=== PATIENT | female | born 1960 | race Caucasian/White ===

== ENCOUNTER 2018-10-17 06:08 | Inpatient (IN) | payer OTHER ==
[2018-09-30 13:30] VITALS: BMI 25.7
[2018-10-17] MEDS ORDERED: CEFAZOLIN 2 GM in DEXTROSE 5%-WATER - 50 ML IVPB ONE (06:22)
[2018-10-17] MEDS ORDERED: oxyCODONE HCL 10 MG SUSTAINED ACTING TABLET PO ONE (06:22)
[2018-10-17] MEDS ORDERED: GABAPENTIN 300 MG CAPSULE (FP) PO ONE (06:22)
[2018-10-17] MEDS ORDERED: ROPIVICAINE 0.2%/MORPH PF/KETOROLAC - 51ML DISP.SYRINGE IA ONE (06:22)
[2018-10-17] MEDS ORDERED: TRANEXAMIC ACID 1000 MG/10 ML VIAL IVPUSH ONE (06:22)
[2018-10-17] MEDS ORDERED: CELECOXIB 200 MG CAPSULE PO ONE (06:22)
[2018-10-17] MEDS ORDERED: PANTOPRAZOLE 40 MG TABLET (FP) PO ONE (06:23)
[2018-10-17] MEDS ORDERED: SODIUM CHLORIDE 0.9% P/F 10 ML VIAL IJ ONE (07:00)
[2018-10-17] MEDS ORDERED: MIDAZOLAM HCL 2 MG/2 ML SINGLE DOSE VIAL ONE ×2 (07:00→08:49)
[2018-10-17] MEDS ORDERED: BUPIVACAINE LIPOSOME/PF (EXPAREL) 266 MG/20 ML VIAL ONE (07:00)
[2018-10-17] MEDS ORDERED: SUCCINYLCHOLINE CHLORIDE 200 MG/10 ML VIAL ONE (07:07)
[2018-10-17] MEDS ORDERED: PROPOFOL 20 ML ONE (07:07)
[2018-10-17] MEDS ORDERED: ONDANSETRON 4 MG/2 ML VIAL ONE (07:11)
[2018-10-17] MEDS ORDERED: DEXAMETHASONE SOD PHOSPHATE 4 MG/1 ML VIAL ONE (07:11)
[2018-10-17] MEDS ORDERED: ceFAZolin SODIUM 1 GM VIAL ONE ×2 (07:11→08:01)
[2018-10-17] MEDS ORDERED: LIDOCAINE HCL/PF 2% SDV 5ML VIAL ONE (07:25)
--- NOTE | 2018-10-17 07:36 | HP ---
Admitting History and Physical - Admission Chief Complaint: left knee osteoarthritis x years History of Present Illness: 58 year old female presents in regard to her left knee. Longstanding history of left knee osteoarthritis. Patient complains of pain, limited ROM, difficulty ambulating and difficulty completing ADLs. Patient has failed conservative treatment measures including PO medication, activity modifications, injections and exercise programs. At this point, patient would like to proceed with surgical intervention - left total knee arthroplasty, MAKOplasty. History Source: Patient - Past Medical History Pulmonary: Yes: Asthma Gastrointestinal: Yes: GERD Heme/Onc: Yes: Cancer (h/o Breast CA) Musculoskeletal: Yes: Osteoarthritis ENT: Yes: Other (Hay fever) Endocrine: Yes: Hypothyroidism - Past Surgical History Additional Past Surgical History: See written history and physical. - Advance Directives Advance Directives: Yes: Living Will, Health Care Proxy - Smoking History Smoking history: Former smoker Have you smoked in the past 12 months: No If you are a former smoker, when did you quit?: - Alcohol/Substance Use Hx Alcohol Use: Yes (WINE SOCIALLY) Home Medications - Allergies Allergies/Adverse Reactions: Allergies Allergy/AdvReac Type Severity Reaction Status Date / Time bee venom protein (honey bee) Allergy Severe Difficulty Verified 09/30/18 13:14 Breathing No Known Drug Allergies Allergy Verified 09/30/18 13:14 - Home Medications Home Medications: Ambulatory Orders Albuterol Sulfate [Proair Hfa] 8.5 gm IH QID PRN MDD HASNT USED FOR YRS Anastrozole [Arimidex -] 1 mg PO DAILY 09/30/18 Ascorbic Acid [Vitamin C] 500 mg PO DAILY 09/30/18 Bupropion HCl [Wellbutrin Xl] 300 mg PO DAILY 09/30/18 Cetirizine HCl [Zyrtec -] 10 mg PO DAILY 09/30/18 Cholecalciferol (Vitamin D3) [Vitamin D] 2,000 unit PO DAILY 09/30/18 Levothyroxine [Synthroid -] 150 mcg PO DAILY 09/30/18 Montelukast Sodium [Singulair] 10 mg PO DAILY 09/30/18 Mv,Calcium,Min/Iron/Folic/Vitk [Essential Woman Tablet] 1 each PO DAILY Pantoprazole Sodium 40 mg PO DAILY 09/30/18 Review of Systems - Review of Systems Musculoskeletal: reports: Crepitus (left knee), Decreased ROM (left knee), Joint Pain (left knee), Joint Swelling (left knee) Physical Examination Vital Signs: Vital Signs Temperature 98.8 F 10/17/18 06:48 Pulse Rate 68 10/17/18 06:48 Respiratory Rate 18 10/17/18 06:48 Blood Pressure 122/80 10/17/18 06:48 O2 Sat by Pulse Oximetry (%) Constitutional: Yes: Well Nourished, No Distress Eyes: Yes: Conjunctiva Clear HENT: Yes: Atraumatic, Normocephalic Neck: Yes: Supple Cardiovascular: Yes: Regular Rate and Rhythm Respiratory: Yes: Regular Gastrointestinal: Yes: Soft ...Rectal Exam: Yes: Deferred Musculoskeletal: Yes: Joint Stiffness (left knee), Joint Swelling (left knee) Assessment/Plan 58 year old female presents in regard to her left knee. Longstanding history of left knee osteoarthritis. Patient complains of pain, limited ROM, difficulty ambulating and difficulty completing ADLs. Patient has failed conservative treatment measures including PO medication, activity modifications, injections and exercise programs. At this point, patient would like to proceed with surgical intervention - left total knee arthroplasty, MAKOplasty. Pros, cons, risks, benefits and alternatives of a left total knee arthroplasty, MAKOplasty were discussed with the patient at length. Patient confirms her understanding and consents to proceed with a left total knee arthoplasty, MAKOplasty.
[2018-10-17] MEDS ORDERED: VANCOMYCIN 1,000 MG VIAL (RESTRICTED TO ID ONLY) ONE (08:01)
[2018-10-17] MEDS ORDERED: ONDANSETRON 4 MG/2 ML VIAL IVPUSH PRN ×2 (09:44→11:21)
[2018-10-17] MEDS ORDERED: oxyCODONE HCL 5 MG TABLET PO PRN ×2 (09:45)
[2018-10-17] MEDS ORDERED: oxyCODONE HCL 10 MG SUSTAINED ACTING TABLET PO SCH (10:00)
--- NOTE | 2018-10-17 11:20 | OP ---
Operative Note - Note: Operative Date: 10/17/18 Pre-Operative Diagnosis: Left knee osteoarthritis Operation: left MACIEJ TKA Post-Operative Diagnosis: Same as Pre-op Surgeon: Jessú Winter Casket Assembler Metal: Lexi Holden Anesthesia: Spinal Estimated Blood Loss (mls): 150
[2018-10-17] MEDS ORDERED: MAGNESIUM HYDROX 2400MG/30ML ORAL SUSPENSION 30 ML CUP PO PRN (11:21)
[2018-10-17] MEDS ORDERED: MAG HYDROX/AL HYDROX/SIMETH 30 ML UNIT-DOSE CUP PO PRN (11:21)
[2018-10-17] MEDS ORDERED: ALBUTEROL SO4 8 GM HFA INHALER IH PRN (11:21)
[2018-10-17] MEDS ORDERED: ACETAMINOPHEN 1000 MG/100 ML VIAL (NON FORMULARY) IVPB ONE ×2 (11:23→12:05)
[2018-10-17] MEDS ORDERED: LACTATED RINGERS SOLUTION 1,000 ML IV SCH (11:30)
[2018-10-17] MEDS ORDERED: KETOROLAC TROMETHAMINE 30 MG/1 ML VIAL IVPUSH ONE (12:22)
[2018-10-17] MEDS ORDERED: traMADol HCL 50 MG TABLET PO ONE (12:30)
--- NOTE | 2018-10-17 16:36 | SPEC ---
DATE OF OPERATION: 10/17/2018 PREOPERATIVE DIAGNOSIS: Left knee osteoarthritis. POSTOPERATIVE DIAGNOSIS: Left knee osteoarthritis. PROCEDURE: Left total knee replacement with Makoplasty robotic navigation. ATTENDING: Sulma Meraz M.D. FIELD SERVICE ANALYST: Yessica Gruber ANESTHESIA: Spinal plus sedation. ESTIMATED BLOOD LOSS: 150 mL. COMPLICATIONS: None. DISPOSITION: The patient was transferred to the PACU in stable condition. IMPLANTS USED: Wesley Triathlon size 6 femoral component, size 5 tibial component, 13-mm total stabilized polyethylene component, 32-mm patellar component. INDICATION: This is a 58-year-old female who presents to the office complaining of severe left knee pain. She was seen and examined by Dr. Meraz and diagnosed with severe left knee osteoarthritis. The patient was initially treated nonoperatively with injections, medications, and physical therapy but continued to have severe pain and ambulatory dysfunction. She was therefore indicated for a left total knee replacement. The risks, benefits, and alternatives to the surgery were explained to the patient in great detail, and she elected to proceed with the procedure. DESCRIPTION OF PROCEDURE: On the day of surgery, the patient was taken to the operating room and placed on the OR table. Spinal anesthesia was administered by the anesthesiologist. The patient was then positioned supine on the table and all bony prominences were padded. The knee was then prepped and draped in the usual sterile fashion and intravenous antibiotics were given for infection prophylaxis. A surgical time-out was then performed with the team, and the patients identity, procedure, side, availability of implants, and the administration of antibiotics was confirmed. With the knee flexed, a midline incision was made and carried down through the subcutaneous fat to the underlying retinaculum. A medial parapatellar arthrotomy was performed. This was followed by a subperiosteal dissection of the tissue off the proximal, medial tibia. A portion of fat pad was removed from under the patellar tendon, and a small portion of fat was excised off the distal supracondylar femur. Electrocautery and an Aquamantys bipolar sealing device were used to achieve hemostasis. The knee was then flexed further and the anterior horn of the lateral meniscus was released from the midline. Next, the anterior and posterior cruciate ligaments were transected. Grade 4 changes were noted diffusely throughout the knee. Femoral and tibial checkpoints were then placed in the appropriate location using a mallet. Two parallel bicortical self-drilling pins were placed in the tibial diaphysis after making stab incisions and bluntly dissecting down to bone. Two pins were then placed in the distal supracondylar femur. The Gem navigation arrays were then attached to both the femoral and tibial pins and the lower extremity was then registered to the robotic navigation device using various joint movements, as well as inputting several dozen reference points. The knee was then taken through a full range of motion with a corrective force applied. Alignment in varus/valgus as well as flexion/extension and soft tissue balance was measured in various positions. The navigation device showed a numerical and graphic representation of the soft tissue balance. The components were repositioned virtually using the software until optimal soft tissue balance was achieved on screen. Once this was accomplished, the final plan was saved and sent to the robot. Self-retaining retractors were then placed at the joint line for exposure and protection of the collateral ligaments. The robot was brought into the sterile field and registered with the navigation device. The robotic arm with attached oscillating saw blade was then used to perform femoral and tibial bone cuts as per the saved software plan. The femoral box cut was made using the appropriately sized manual cutting guide. The knee was then irrigated. Trial components were placed and the knee was taken through a full range of motion to assess soft tissue balance and alignment. The range of motion was found to be excellent and the soft tissue balance was optimal and according to plan. The knee was then put into extension and the patella everted. The synovium around the patella was circumscribed with electrocautery. A caliper was used to measure the patellar thickness and a saw was then used to resect the patella at the chondro-osseous junction. The cut surface was then sized and drilled for the appropriate patellar button, with care taken to medialize it. A trial patella was then placed and the knee was again taken through a full range of motion. The knee was found to have both good balance and good patellar tracking. All of the components were removed except the tibial base plate. The appropriate instrumentation was used to drill and punch the proximal tibia for the keel of the final component. All bony surfaces were then cleaned with pulsatile lavage and dried. Bone cement was then prepared on the back table, and final components were cemented in place in the usual fashion. Extruded cement was removed. The polyethylene trial was placed, the knee was put into extension, and axial pressure was applied for compression while the cement hardened. The patellar button was similarly cemented into place. Once the cement had hardened, the knee was taken through a full range of motion to assess stability, balance, and patellar tracking. This was found to be optimal and the trial polyethylene was exchanged for the appropriately sized real implant. The wound was then thoroughly irrigated with normal saline. A 3-minute dilute Betadine lavage was performed. The knee was again irrigated using a pulsatile lavage device. A periarticular injection was used to locally infiltrate the capsular tissues surrounding the implant and prosthesis. Then No. 1 Polysorb and 0 VLoc 180 barbed sutures were used to close the arthrotomy. Then No. 1 Polysorb and 2-0 VLoc 90 sutures were used in the subcutaneous tissues. Then 4-0 undyed Vicryl and Dermabond skin adhesive was used to close the stab incisions made for the navigation pins. The skin was closed using both 3-0 VLoc 90 suture in a running subcuticular fashion and Dermabond skin adhesive. Once this was completed a sterile Aquacel dressing and compressive Davonte-wrap was applied. The patient was then awakened and taken to the PACU in stable condition. SULMA MERAZ M.D. ANA/[id number]
[2018-10-17] MEDS: KETOROLAC TROMETHAMINE 30 MG/1 ML VIAL IVPUSH SCH ×2 (17:33→17:37)
[2018-10-17] MEDS: traMADol HCL 50 MG TABLET PO SCH (17:34)
[2018-10-17] MEDS: CEFAZOLIN 2 GM/D5W 2 GM/50 ML ML IVPB SCH (17:35)
[2018-10-17] MEDS: ACETAMINOPHEN 325 MG TABLET (FP) PO SCH (17:36)
[2018-10-17] MEDS ORDERED: DEXAMETHASONE SOD PHOSPHATE 10 MG/1 ML VIAL IVPB ONE (20:00)
[2018-10-17] MEDS: CELECOXIB 200 MG CAPSULE PO SCH (21:33)
[2018-10-17] MEDS: GABAPENTIN 300 MG CAPSULE (FP) PO SCH (21:33)
[2018-10-17] MEDS: SENNOSIDES/DOCUSATE COMBO (SENNA PLUS) TABLET (UD) PO SCH (21:34)
[2018-10-17] MEDS: oxyCODONE HCL 10 MG SUSTAINED ACTING TABLET PO SCH (21:34)
[2018-10-17] MEDS: ASCORBIC ACID 500 MG TABLET (FP) PO SCH (21:34)
[2018-10-18] MEDS: KETOROLAC TROMETHAMINE 30 MG/1 ML VIAL IVPUSH SCH ×2 (00:08→06:50)
[2018-10-18] MEDS: ACETAMINOPHEN 325 MG TABLET (FP) PO SCH ×5 (00:08→23:53)
[2018-10-18] MEDS: traMADol HCL 50 MG TABLET PO SCH ×6 (00:09→23:53)
[2018-10-18] MEDS: CEFAZOLIN 2 GM/D5W 2 GM/50 ML ML IVPB SCH (01:17)
[2018-10-18] MEDS: LACTATED RINGERS SOLUTION 1,000 ML IV SCH ×2 (08:11→14:04)
[2018-10-18 08:17] LABS: HEMATOCRIT 40.3 % (32.4-45.2); HEMOGLOBIN 13.5 GM/dl (10.7-15.3); MCH 31.9 pg (25.7-33.7); MCHC 33.5 g/dl (32.0-36.0); MEAN CELL VOLUME 95.3 fl (80-96); MEAN PLT VOLUME 8.1 fl (7.5-11.1); PLATELET COUNT 325 K/MM3 (134-434); RBC 4.23 M/mm3 (3.60-5.2); RDW 11.6 % (11.6-15.6); WHITE BLOOD COUNT 10.2 K/mm3 (4.0-10.8)
[2018-10-18] MEDS: ASPIRIN 325 MG TABLET PO SCH (09:00)
[2018-10-18 09:09] LABS: ANION GAP 7 MMOL/L (8-16); BLOOD UREA NITROGEN 17 mg/dl (7-18); CALCIUM 9.1 mg/dl (8.4-10.2); CHLORIDE 100 mmol/L (98-107); CO2 30 mmol/L (22-28); CREATININE 0.8 mg/dl (0.6-1.3); GLUCOSE,RANDOM 149 mg/dl (74-106); SODIUM 137 mmol/L (136-145)
[2018-10-18 09:59] LABS: POTASSIUM 4.6 mmol/L (3.5-5.1)
[2018-10-18] MEDS ORDERED: PATIENT'S OWN MEDICATION (NON-FORMULARY) (Cetirizine Hcl 10 MG) PO SCH (10:00)
[2018-10-18] MEDS ORDERED: PATIENT'S OWN MEDICATION (NON-FORMULARY) (Bupropion Hcl [Wellbutrin Xl] 300 MG) PO SCH (10:00)
[2018-10-18] MEDS: GABAPENTIN 300 MG CAPSULE (FP) PO SCH ×2 (10:17→21:37)
[2018-10-18] MEDS: LORATADINE 10 MG TABLET PO SCH (10:17)
[2018-10-18] MEDS: MULTIVITAMINS (DAILY MVI) TABLET (FP) PO SCH (10:17)
[2018-10-18] MEDS: SENNOSIDES/DOCUSATE COMBO (SENNA PLUS) TABLET (UD) PO SCH ×2 (10:18→21:37)
[2018-10-18] MEDS: ASCORBIC ACID 500 MG TABLET (FP) PO SCH ×2 (10:18→21:38)
[2018-10-18] MEDS: PANTOPRAZOLE 40 MG TABLET (FP) PO SCH (10:18)
[2018-10-18] MEDS: MONTELUKAST NA 10 MG TABLET PO SCH (10:19)
[2018-10-18] MEDS: oxyCODONE HCL 10 MG SUSTAINED ACTING TABLET PO SCH ×2 (10:19→21:37)
[2018-10-18] MEDS: ANASTROZOLE 1 MG TABLET PO SCH (10:19)
[2018-10-18] MEDS: CELECOXIB 200 MG CAPSULE PO SCH ×2 (10:19→21:37)
--- NOTE | 2018-10-18 14:21 | PN ---
Progress Note (short form) - Note Progress Note: 58F POD1 s/p L TKR under spinal anesthetic with peripheral nerve blocks for post operative pain relief. Pt states that pain is well controlled and reports no anesthetic complications. AVSS. Motor and sensory exam intact in bilateral lower extremities. Continue current regimen.
[2018-10-19] MEDS: ACETAMINOPHEN 325 MG TABLET (FP) PO SCH ×2 (06:51→11:47)
[2018-10-19] MEDS: traMADol HCL 50 MG TABLET PO SCH ×2 (06:52→11:47)
[2018-10-19 07:10] VITALS: BP 114/70; PULSE 68; TEMP 97.7
[2018-10-19] MEDS: ASPIRIN 325 MG TABLET PO SCH (08:07)
[2018-10-19 08:18] LABS: HEMATOCRIT 35.9 % (32.4-45.2); HEMOGLOBIN 12.1 GM/dl (10.7-15.3); MCH 32.2 pg (25.7-33.7); MCHC 33.8 g/dl (32.0-36.0); MEAN CELL VOLUME 95.2 fl (80-96); MEAN PLT VOLUME 8.5 fl (7.5-11.1); PLATELET COUNT 295 K/MM3 (134-434); RBC 3.77 M/mm3 (3.60-5.2); RDW 11.4 % (11.6-15.6); WHITE BLOOD COUNT 8.6 K/mm3 (4.0-10.8)
[2018-10-19] MEDS ORDERED: PT OWN MED DRAWER 7, Y5N ONE (09:08)
[2018-10-19] MEDS: MULTIVITAMINS (DAILY MVI) TABLET (FP) PO SCH (09:13)
[2018-10-19] MEDS: MONTELUKAST NA 10 MG TABLET PO SCH (09:13)
[2018-10-19] MEDS: PANTOPRAZOLE 40 MG TABLET (FP) PO SCH (09:13)
[2018-10-19] MEDS: CELECOXIB 200 MG CAPSULE PO SCH (09:13)
[2018-10-19] MEDS: ANASTROZOLE 1 MG TABLET PO SCH (09:13)
[2018-10-19] MEDS: GABAPENTIN 300 MG CAPSULE (FP) PO SCH (09:13)
[2018-10-19] MEDS: ASCORBIC ACID 500 MG TABLET (FP) PO SCH (09:13)
[2018-10-19] MEDS: oxyCODONE HCL 10 MG SUSTAINED ACTING TABLET PO SCH (09:14)
[2018-10-19] MEDS: SENNOSIDES/DOCUSATE COMBO (SENNA PLUS) TABLET (UD) PO SCH (09:14)
[2018-10-19] MEDS: LORATADINE 10 MG TABLET PO SCH (09:14)
[2018-10-19] MEDS: LACTATED RINGERS SOLUTION 1,000 ML IV SCH (09:15)
--- NOTE | 2018-10-19 12:23 | DS ---
Physical Examination Vital Signs: Vital Signs Temperature 97.7 F 10/19/18 07:08 Pulse Rate 68 10/19/18 07:08 Respiratory Rate 15 10/19/18 07:08 Blood Pressure 114/70 10/19/18 07:08 O2 Sat by Pulse Oximetry (%) 98 10/19/18 04:04 Labs: CBC, BMP 10/19/18 07:05 10/18/18 07:30 Discharge Summary Reason For Visit: LEFT KNEE OSTEOARTHRITIS Current Active Problems Osteoarthritis of left knee (Acute) Procedures: Principal: Left TKA Hospital Course: Admitted for elective surgery. Procedure performed without complications. Pt received postoperative antibiotic prophylaxis and DVT ppx. Ambulated with physical therapy. Stable for discharge home with outpatient followup. Condition: Stable - Instructions Diet, Activity, Other Instructions: Dr. Winter - Knee Replacement Instructions Keep the Aquacel dressing on until removed by Dr. Winter in 10-14 days - it is antibacterial and waterproof and you can shower with it on. Call the office for a follow-up appointment with Dr. Winter in 10-14 days. Take one Aspirin 325mg daily for 6 weeks to prevent blood clots in your legs. Take one Pantoprazole 40mg daily for 6 weeks to protect against heartburn and ulcers. Take Cephalexin (antibiotic) 3x/day for 10 days to help prevent skin infection. Take Celebrex 200mg twice daily for 30 days to reduce swelling and inflammation. Take a multivitamin, stool softener, and extra Vitamin C supplement daily. For pain: *Mild pain (1-3/10): Take 1 Tramadol tablet every 4 hours as needed. Moderate pain (4-6/10): Take 1 Tramadol tablet and 1 Percocet tablet every 4 hours as needed. Severe pain (7-10/10): Take 1 Tramadol tablet and 2 Percocet tablets every 4 hours as needed. Activity: You can put as much weight on the operative leg as you want. Right after you get home, there will be a physical therapist coming to your house to help you walk around and bend/straighten your knee. After your follow-up appointment, you will be sent for more intensive outpatient physical therapy which will include machines and equipment that the home therapist cannot bring to your house. Always use a walker or cane for balance and to prevent falls. Expect to see swelling/bruising from the operative site all the way down to your toes. Wear the compression stocking on the operative side during the day to minimize how much swelling there is in your foot/ankle. Don't wear the stocking at night. You don't have to wear a stocking on the other side. Disposition: VNS/HOME HEALTH CARE - Home Medications Comprehensive Discharge Medication List: Ambulatory Orders Albuterol Sulfate [Proair Hfa] 8.5 gm IH QID PRN MDD HASNT USED FOR YRS Anastrozole [Arimidex -] 1 mg PO DAILY 09/30/18 Bupropion HCl [Wellbutrin Xl] 300 mg PO DAILY 09/30/18 Cetirizine HCl [Zyrtec -] 10 mg PO DAILY 09/30/18 Cholecalciferol (Vitamin D3) [Vitamin D3] 2,000 unit PO DAILY 09/30/18 Levothyroxine [Synthroid -] 150 mcg PO DAILY 09/30/18 Montelukast Sodium [Singulair] 10 mg PO DAILY 09/30/18 Mv,Calcium,Min/Iron/Folic/Vitk [Multi For Her Tablet] 1 each PO DAILY 09/30/18 Pantoprazole Sodium 40 mg PO DAILY 09/30/18 Ascorbic Acid [Vitamin C -] 500 mg PO BID tablet 10/19/18 Aspirin [ASA -] 325 mg PO DAILY@0800 tablet 10/19/18 Celecoxib [CeleBREX -] 200 mg PO BID #60 capsule 10/19/18 Cephalexin Monohydrate [Keflex -] 500 mg PO TID #30 capsule 10/19/18 Multivitamins [Multivit ([facility] Formulary)] 1 tab PO DAILY tab 10/19/18 Oxycodone HCl/Acetaminophen [Percocet 5-325 mg Tablet] 1 - 2 tab PO Q4H PRN #60 tablet MDD 10 10/19/18 Pantoprazole Sodium [Protonix -] 40 mg PO DAILY #40 tablet.ec 10/19/18 Sennosides/Docusate Sodium [Pericolace -] 2 tablet PO BID tablet 10/19/18 traMADol HCL [Ultram -] 50 mg PO Q4H PRN #42 tablet MDD 6 10/19/18
--- NOTE | 2018-10-19 12:25 | PN ---
Progress Note (short form) - Note Progress Note: Pt seen and examined. Doing very well. AVSS Selected Entries 10/18/18 10/19/18 10/19/18 22:19 02:00 04:04 Temperature 97.9 F Pulse Rate 62 Respiratory 15 Rate Blood Pressure 116/68 O2 Sat by Pulse 100 98 Oximetry (%) Oxygen Delivery Room Air Room Air Method 10/19/18 07:08 Temperature 97.7 F Pulse Rate 68 Respiratory 15 Rate Blood Pressure 114/70 O2 Sat by Pulse Oximetry (%) Oxygen Delivery Method Laboratory Tests 10/18/18 10/18/18 10/19/18 07:30 07:30 07:05 WBC 10.2 8.6 Hgb 13.5 12.1 Hct 40.3 35.9 Plt Count 325 295 Sodium 137 Potassium 4.6 Chloride 100 Carbon Dioxide 30 H Anion Gap 7 L BUN 17 Creatinine 0.8 Creat Clearance w eGFR > 60 Random Glucose 149 H Calcium 9.1 Gen: NAD LLE: c/d/i, NVID A/P POD#2 s/p L TKA Doing very well. D/C home today.
--- NOTE | 2018-10-24 15:00 | PATH ---
Surgical Pathology Report Patient Name: SOO MENDEZ Med. Rec. #: [id number] /Age/Gender: 1960 (Age: 58) / F Account: [id number] Location: [facility] Taken: 10/17/2018 Received: 10/17/2018 Reported: 10/24/2018 Physicians: Jesús Winter M.D. Specimen(s) Received BONE LEFT KNEE Clinical History Osteoarthritis left knee Final Diagnosis BONE, LEFT KNEE, TOTAL KNEE REPLACEMENT: DEGENERATIVE JOINT DISEASE. Electronically Signed Natalia Atkinson M.D. Gross Description Received in formalin labeled "bone left knee," is a 12.5 x 10.0 x 1.4 cm aggregate of multiple portions of bone and soft tissue. The tibial plateau measures 8.0 x 6.2 x 1.8 cm. There are multiple areas of eburnation present, measuring up to 1.5 cm in greatest dimension. The remaining articular surfaces are grove-yellow and diffusely granular. The underlying trabecular bone is yellow and hard. Research Associate Professor sections are submitted in one cassette, following decalcification. 10/18/2018 [facility]10/18/2018
== END 2018-10-19 12:50 | disposition home health service (06) | DRG 302 ==
LOC: FM/S 06:08
PROVIDERS: ADMIT Student in an Organized Health Care Education/Training Program; ATTEND Student in an Organized Health Care Education/Training Program
PROC: 8E0Y0CZ Robotic Assisted Procedure of Lower Extremity, Open Approach (ICD-10-PCS; 2018-10-17)
PROC: 0SRD0J9 Replacement of Left Knee Joint with Synthetic Substitute, Cemented, Open Approach (ICD-10-PCS; principal; 2018-10-17 08:55)
DX: M17.12 Unilateral primary osteoarthritis, left knee (principal); J45.909 Unspecified asthma, uncomplicated; K21.9 Gastro-esophageal reflux disease without esophagitis; E03.9 Hypothyroidism, unspecified; Z85.3 Personal history of malignant neoplasm of breast
CPT/HCPCS: 36415; 73560-TC-LT-FY; 80048; 85027; 88304-TC; 88311-TC; 94760; 97116-GP; 97161-GP; J0131; J1100

== ENCOUNTER 2020-05-14 13:10 | Emergency (ER) | payer OTHER ==
[2020-05-14 13:33] VITALS: TEMP 98.2; BMI 26.9
[2020-05-14] MEDS ORDERED: SODIUM CHLORIDE 1,000 ML IV ONE (13:43)
--- NOTE | 2020-05-14 13:43 | PDOC ---
History of Present Illness - General Chief Complaint: Tremors Stated Complaint: TREMOR REACTION TO COLCHICINE Time Seen by Provider: 05/14/20 13:21 History Source: Patient Exam Limitations: No Limitations - History of Present Illness Initial Comments: 05/14/20 13:44 59y F h xof breast ca sp lumpectomy, hypothyroidism presenst with complaint of feeling jittery, weak, lightheaded after taking colchicine. Pt states she had several episodes of shooting R toe pain (3 episodes last night and this morning) lasting approx 20 minutes before resolving, so she notifed her PMD who referred her to urgent care. There she was dx with gout and started on indomethicin and colchicine. She took a dose of the indomethicin and 2 doses of the colchicine (2pills 1st does, 1 pill about 1 hr later). Abouit 20 min after the 2nd dose, she started feeling lightheaded, generally weak and shaky. She denies any associated pain including headache, neck pain, cp, sob, MEDRANO, n/v, palptations, abd pain, back pain, focal numbness/tingling/wekanss, vision changes, dysatrhria, fever/chills, cough, leg swelling, diarrhea, melena, bpr, dysuria. Pt has never felt like this before. Has never had a dx of gout in the past. she maxim any current foot pain. Past History - Medical History Allergies/Adverse Reactions: Allergies Allergy/AdvReac Type Severity Reaction Status Date / Time bee venom protein (honey bee) Allergy Severe Difficulty Verified 05/14/20 13:27 Breathing No Known Drug Allergies Allergy Verified 05/14/20 13:27 Home Medications: Ambulatory Orders Anastrozole [Arimidex -] 1 mg PO DAILY 09/30/18 Cetirizine HCl [Zyrtec -] 10 mg PO DAILY 09/30/18 Montelukast Sodium [Singulair] 10 mg PO DAILY 09/30/18 Pantoprazole Sodium 40 mg PO DAILY 09/30/18 Multivitamins [Multivit ([facility] Formulary)] 1 tab PO DAILY tab 10/19/18 Cholecalciferol (Vitamin D3) [Vitamin D3 -] 1,000 unit PO DAILY 05/14/20 Colchicine [Colcrys] 0.6 mg PO ONCE 05/14/20 Colchicine [Colcrys] 1.2 mg PO ONCE 05/14/20 Indomethacin [Indomethacin ER] 75 mg PO BID 05/14/20 Levothyroxine Sodium [Levoxyl] 175 mcg PO DAILY 05/14/20 Anemia: No Asthma: Yes (MILD/USES PROAIR RARELY) Cancer: Yes (ALMA BREAST CA DIAG 03/2018) Cardiac Disorders: No CVA: No COPD: No CHF: No Dementia: No Diabetes: No GI Disorders: Yes (GERD) Disorders: No HTN: No Hypercholesterolemia: No Liver Disease: No Seizures: No Thyroid Disease: Yes (hypo) - Surgical History Abdominal Surgery: Yes (GASTRIC SLEEVE 09/07/17) Appendectomy: Yes (YRS AGO) Cardiac Surgery: No Cholecystectomy: No Lung Surgery: No Neurologic Surgery: No Orthopedic Surgery: Yes (LEFT KNEE ARTHROSCOPIES X 4) - Psycho-Social/Smoking History Smoking History: Former smoker Have you smoked in the past 12 months: No If you are a former smoker, when did you quit?: 1989 Information on smoking cessation initiated: No - Substance Abuse Hx (Audit-C & DAST Scrn) How often the patient has a drink containing alcohol: 4 0r more times/wk Number of drinks the patient has on a typical day: 1 or 2 How often the patient has six or more drinks on one occasion: Never Score: In Men: 4 or > Positive; In Women: 3 or > Positive: 4 Screen Result (Pos requires Nsg. Audit-10AR): Positive In the last yr the pt used illegal drug/Rx for NonMed reason: No Score: Yes response is considered Positive: 0 Screen Result (Positive result requires Nsg. DAST-10): Negative Review of Systems - Review of Systems Able to Perform ROS?: Yes Comments:: 05/14/20 14:05 ROS Constitutional - +general weakness / shaky no reported Fever, Chills, HEENT: no reported vision changes, sore throat Respiratory: no reported cough, sob, hemoptysis Cardiac: +light headedness, dizzy no reported chest pain, palpitations, leg swelling Abd/GI: no reported abd pain, nausea, vomiting, blood per rectum, melena, diarrhea : no reported dysuria, frequency, discharge Musculskelatal - no reported back pain, joint swelling skin - no reported bruising, erythema, rash neurological: no reported headache, numbness, focal weakness, tingling, ataxia, hematologic: no reported easy bruising, easy bleeding Exam: GENERAL: The patient is awake, alert, and fully oriented, Nontoxic - in no acute distress. HEAD: Normocephalic, atraumatic. EYES: extraocular movements intact, sclera anicteric, conjunctiva clear. ENT: Normal voice, Moist mucous membranes. NECK: Normal range of motion, supple LUNGS: Breath sounds equal, clear to auscultation bilaterally. No wheezes, no rhonchi, no rales. HEART: Regular rate and rhythm, normal S1 and S2 without murmur, rub or gallop. ABDOMEN: Soft, nontender, No guarding, no rebound. No CVA tenderness EXTREMITIES: Normal range of motion, no edema. NEUROLOGICAL: No facial assymetry, Normal speech, normal finger to nose, normal rapid alternating movements, visual renteria intact to confrontation, unstable gait, neg romberg, strengh 5/5 and symmetric in upper/lower extremities PSYCH: anxious appearing SKIN: Warm, Dry, normal turgor, *Physical Exam - Vital Signs Last Vital Signs Temp Pulse Resp BP Pulse Ox 98.2 F 66 18 176/89 H 100 05/14/20 13:18 05/14/20 13:18 05/14/20 13:18 05/14/20 13:18 05/14/20 13:18 Heart Score/ECG Review - ECG Impressions Comment:: 05/14/20 14:07 Twelve-lead EKG was performed and reviewed by me. There is normal sinus rhythm with a normal rate. Rate of 65 The axis is normal. The intervals are normal. There is normal R wave progression There are no ST or T wave abnormalities. Impression: Normal twelve-lead EKG ED Treatment Course - LABORATORY CBC & Chemistry Diagram: 05/14/20 14:00 05/14/20 14:00 - RADIOLOGY Radiology Studies Ordered: Category Date Time Status HEAD CT WITHOUT CONTRAST [CT] Stat CT Scan 05/14/20 13:42 Ordered Medical Decision Making - Medical Decision Making 05/14/20 14:08 ddx for the pts sx includes possible medication side effect, anemia, metabolic derangement, dehydration, exam unremarakble beside some mild temor and a shaky gait, neuro intact will obtain blood work, cardiac enzymes, ekg, head ct will treat with fluids will reassess 05/14/20 15:30 pt feelnig improved complaining of mild headaceh no longer dizzy walking around with a normal gait labs reviewed ct head negative will dc with pmd fu and supportive care return precautiosn wre discussed Discharge - Discharge Information Problems reviewed: Yes Clinical Impression/Diagnosis: Medication side effect Condition: Improved Disposition: HOME - Admission No - Follow up/Referral Referrals: Suhail Mayfield [Primary Care Provider] - - Patient Discharge Instructions Patient Printed Discharge Instructions: DI for Muscle Weakness, DI for Dizziness-Nonvertigo Additional Instructions: Return to the emergency department immediately with ANY new, persistent or worsening symptoms Including any focal weakness, numbness, tingling, vision changes, changes in your speech, any pain or any other concerns. You MUST call and follow up with your doctor in 2-3 days for further evaluation of your symptoms. Results were discussed with you. Please make sure your doctor reviews the results of your emergency evaluation. Your Emergency Department visit is not complete without a follow up with your doctor. Print Language: KYRGYZ - Post Discharge Activity
[2020-05-14 14:19] LABS: EPITHELIAL CELLS FEW /hpf
[2020-05-14 14:26] LABS: BASO % 1.7 % (0-2.0); EOS % 2.1 % (0-4.5); HEMATOCRIT 42.5 % (32.4-45.2); HEMOGLOBIN 14.1 GM/dl (10.7-15.3); LYMPH % 27.8 % (8-40); MCH 29.9 pg (25.7-33.7); MCHC 33.2 g/dl (32.0-36.0); MEAN CELL VOLUME 90.1 fl (80-96); MEAN PLT VOLUME 7.9 fl (7.5-11.1); MONO % 7.7 % (3.8-10.2); NEUT % 60.7 % (42.8-82.8); PLATELET COUNT 356 K/MM3 (134-434); RBC 4.71 M/mm3 (3.60-5.2); RDW 11.6 % (11.6-15.6); WHITE BLOOD COUNT 6.8 K/mm3 (4.0-10.8)
[2020-05-14 14:35] LABS: ALBUMIN 4.2 g/dl (3.4-5.0); BILIRUBIN,TOTAL 0.5 mg/dl (0.2-1); CALCIUM 9.3 mg/dl (8.5-10); CREATININE 0.7 mg/dl (0.55-1.3); POTASSIUM 4.3 mmol/L (3.5-5.1); TOT PROT 6.8 g/dl (6.4-8.2)
[2020-05-14] MEDS ORDERED: ACETAMINOPHEN 325 MG TABLET (FP) PO ONE (15:30)
[2020-05-14] MEDS ORDERED: ACETAMINOPHEN 325 MG TABLET (FP) ONE (15:35)
[2020-05-14 15:41] VITALS: BP 115/72; PULSE 65
--- NOTE | 2020-05-16 17:16 | EKG ---
Test Reason : Blood Pressure : / mmHG Vent. Rate : 065 BPM Atrial Rate : 065 BPM P-R Int : 176 ms QRS Dur : 076 ms QT Int : 400 ms P-R-T Axes : 018 -08 015 degrees QTc Int : 416 ms POOR DATA QUALITY, INTERPRETATION MAY BE ADVERSELY AFFECTED NORMAL SINUS RHYTHM NORMAL ECG NO PREVIOUS ECGS AVAILABLE Confirmed by MD Jessica, Ezra ([id number]) on 05/16/2020 5:16:08 PM Referred By: Confirmed By:Ezra Lopez MD
== END 2020-05-14 15:55 | disposition home or self-care (01) ==
LOC: SUPCPDRO 13:10 → FER 13:10
PROC: 3E0337Z Introduction of Electrolytic and Water Balance Substance into Peripheral Vein, Percutaneous Approach (ICD-10-PCS; principal; 2020-05-14)
DX: T50.995A Adverse effect of other drugs, medicaments and biological substances, initial encounter (principal)
CPT/HCPCS: 36415; 70450-TC; 80053; 81003; 81015; 82550; 84484; 85025; 93005; 99285-25